=== PATIENT | female | born 1950 | race Caucasian/White ===

== ENCOUNTER → 2017-04-15 | Outpatient (CLI) | payer MEDICARE, OTHER ==
--- NOTE | 2017-04-15 10:00 | PCVCIMAG ---
APPROVED REPORT Study performed: 04/15/2017 09:05:35 EXAM: Comprehensive 2D, Doppler, and color-flow Echocardiogram Status: routine Other Information Study Quality: Good Indications Hypertension/HDD Bicuspid aortic valve, PFO 2D Dimensions LVEF(%): 57.39 (>50%) IVSd: 11.50 (7-11mm) LVDd: 33.80 mm PWd: 11.36 (7-11mm)Ascending Ao: 40.40 (22-36mm) LVDs: 23.89 (25-40mm) Left Atrium: 29.30 (27-40mm) Aortic Root: 34.81 mm LV Single Plane 4CH: 51.97 % LV Single Plane 2CH: 52.24 %Mirza's LVEF: 52.10 % Biplane EF: 54.5 % Volumes Left Atrial Volume (Systole) Single Plane 4CH: 29.43 mLSingle Plane 2CH: 46.16 mL LA ESV Index: 24.00 mL/m2 Aortic Valve AoV Peak Yogi.: 1.92 m/s AO Peak Gr.: 14.80 mmHgLVOT Max P.53 mmHg LVOT Max V: 0.80 m/s Mitral Valve E/A Ratio: 0.6 MV Decel. Time: 309.39 ms MV E Max Yogi.: 0.45 m/s MV A Yogi.: 0.74 m/s IVRT: 121.11 ms TDI E/Lateral E': 8.50E/Medial E': 18.00 Pulmonary Valve PV Peak Yogi.: 0.74 m/sPV Peak Gr.: 2.17 mmHg Pulmonary Vein P Vein S: 0.31 m/sP Vein A: 0.29 m/s P Vein D: 0.37 m/sP Vein A Dur.: 138.4 msec P Vein S/D Ratio: 0.84 Tricuspid Valve TR Peak Yogi.: 2.35 m/s TR Peak Gr.: 22.03 mmHg Left Ventricle The left ventricle is normal size. There is normal LV segmental wall motion. There is normal left ventricular wall thickness. Left ventricular systolic function is normal. The left ventricular ejection fraction is within the normal range. LVEF is >55%. Grade I - abnormal relaxation pattern. Right Ventricle The right ventricle is normal size. The right ventricular systolic function is normal. Atria The left atrium size is normal. Aneurysmal atrial septum with know left to right PFO. The right atrium size is normal. Aortic Valve The aortic valve is moderately sclerotic. The aortic valve is bicuspid. No aortic regurgitation is present. There is normal aortic valve excursion. Mitral Valve The mitral valve is normal in structure. There is trivial mitral valve regurgitation noted. No evidence of mitral valve stenosis. Tricuspid Valve The tricuspid valve is normal in structure. There is trace tricuspid regurgitation. The PAP is 29 mmHg. Pulmonic Valve The pulmonary valve is normal in structure. There is mild pulmonic valvular regurgitation. Great Vessels The ascending aortic root is mildly dilated to 4.1 cm. IVC is normal in size and collapses with >50% inspiration Pericardium There is no pericardial effusion. <Conclusion> Left ventricular systolic function is normal. There is normal LV segmental wall motion. LVEF is >55%. Grade I diastolic dysfunction. The aortic valve is moderately sclerotic. The aortic valve is bicuspid. There is normal aortic valve excursion, no stenosis or insufficiency. The mitral valve is normal in structure. Trace mitral insufficiency There is trace tricuspid regurgitation. Pulmonary artery pressure of 30 mmHg. The ascending aortic root is mildly dilated to 4.1 cm. There is no pericardial effusion.
== END | disposition home or self-care (01) ==
LOC: PCVCIMAG 09:06
PROVIDERS: ATTEND Internal Medicine
DX: I08.1 Rheumatic disorders of both mitral and tricuspid valves (principal); I10 Essential (primary) hypertension; I71.2 Thoracic aortic aneurysm, without rupture; E78.5 Hyperlipidemia, unspecified; I49.3 Ventricular premature depolarization; Q21.1 Atrial septal defect; I25.10 Atherosclerotic heart disease of native coronary artery without angina pectoris; J45.909 Unspecified asthma, uncomplicated; M85.88 Other specified disorders of bone density and structure, other site; Z79.82 Long term (current) use of aspirin; Z79.899 Other long term (current) drug therapy; Z88.1 Allergy status to other antibiotic agents; Z88.5 Allergy status to narcotic agent; Z91.013 Allergy to seafood
CPT/HCPCS: 80061; 93005; 93306; G0463

== ENCOUNTER → 2017-10-17 | Outpatient (CLI) | payer MEDICARE, OTHER | END | disposition home or self-care (01) | LOC: PCVCCLINIC 11:34 | PROVIDERS: ATTEND Internal Medicine | DX: I10 Essential (primary) hypertension (principal); Q21.3 Tetralogy of Fallot; I71.2 Thoracic aortic aneurysm, without rupture; E78.5 Hyperlipidemia, unspecified; G35 Multiple sclerosis; E11.9 Type 2 diabetes mellitus without complications; Z79.82 Long term (current) use of aspirin; Z79.899 Other long term (current) drug therapy | CPT/HCPCS: 80061; 93005; G0463 ==

== ENCOUNTER → 2018-12-01 | Outpatient (CLI) | payer MEDICARE, OTHER | END | disposition home or self-care (01) | LOC: PCVCCLINIC 14:53 | PROVIDERS: ATTEND Internal Medicine | DX: Q23.1 Congenital insufficiency of aortic valve (principal); E78.5 Hyperlipidemia, unspecified; I10 Essential (primary) hypertension; Q21.1 Atrial septal defect; I71.2 Thoracic aortic aneurysm, without rupture; I70.8 Atherosclerosis of other arteries; H35.09 Other intraretinal microvascular abnormalities; E11.9 Type 2 diabetes mellitus without complications; G35 Multiple sclerosis; J45.909 Unspecified asthma, uncomplicated; Z88.8 Allergy status to other drugs, medicaments and biological substances; Z79.82 Long term (current) use of aspirin; Z79.899 Other long term (current) drug therapy | CPT/HCPCS: 36415; 80061; 93005; G0463 ==

== ENCOUNTER → 2018-12-19 | Outpatient (CLI) | payer MEDICARE, OTHER ==
--- NOTE | 2018-12-19 17:11 | PCVCIMAG ---
APPROVED REPORT Study performed: 12/19/2018 15:42:30 EXAM: Comprehensive 2D, Doppler, and color-flow Echocardiogram Patient Location: Echo lab Room #: [id number]: routine BSA: 1.52 Rhythm: NSR Risk Factors: Cardiac Risk Factors: HTN,PFO Indications Aortic Valve Disease CVA/TIA Hypertension/HDD Bicuspid aortic valve 2D Dimensions IVSd: 7.39 (7-11mm)LVOT Diam: 20.70 (18-24mm) LVDd: 36.91 mm PWd: 6.27 (7-11mm)Ascending Ao: 38.86 (22-36mm) LVDs: 18.33 (25-40mm) Left Atrium: 31.76 (27-40mm) Aortic Root: 25.44 mm LV Single Plane 4CH: 57.81 % LV Single Plane 2CH: 59.90 % Biplane EF: 58.5 % Volumes Left Atrial Volume (Systole) Single Plane 4CH: 14.62 mLSingle Plane 2CH: 21.58 mL Biplane LA Volume: 19.00 mLLA ESV Index: 13.00 mL/m2 Aortic Valve AoV Peak Yogi.: 2.26 m/s AO Peak Gr.: 21.16 mmHgLVOT Max P.15 mmHg AO Mean Gr.: 12.26 mmHgLVOT Mean P.13 mmHg AO V2 Mean: 1.70 m/sLVOT Max V: 0.89 m/s AO V2 VTI: 41.84 cm YANNICK (VTI): 1.47 [id number] V1 VTI: 18.35 cm YANNICK Vmax: 1.32 cm2 Mitral Valve E/A Ratio: 0.6 MV Decel. Time: 225.05 ms MV E Max Yogi.: 0.48 m/s MV A Yogi.: 0.80 m/s MV PHT: 65.26 ms IVRT: 110.73 ms Pulmonary Valve PV Peak Yogi.: 0.91 m/sPV Peak Gr.: 3.33 mmHg Pulmonary Vein P Vein S: 0.68 m/sP Vein A: 0.49 m/s P Vein D: 0.47 m/sP Vein A Dur.: 86.5 msec P Vein S/D Ratio: 1.45 Tricuspid Valve TR Peak Yogi.: 1.96 m/s TR Peak Gr.: 15.41 mmHg TV Vmax: 0.50 m/sPA Pressure: 22.00 mmHg Left Ventricle The left ventricle is normal size. There is normal LV segmental wall motion. There is normal left ventricular wall thickness. Left ventricular systolic function is normal. The left ventricular ejection fraction is within the normal range. LVEF is 55-60%. Mild diastolic dysfunction is present (impaired relaxation pattern). Right Ventricle The right ventricle is normal size. The right ventricular systolic function is normal. Atria The left atrium size is normal. The right atrium size is normal. Aortic Valve Aortic valve is probably bicuspid. No aortic regurgitation is present. Mild aortic stenosis. Calculated aortic valve area is 1.3 cm2 with maximum pressure gradient of 20 mmHg and mean pressure gradient of 12 mmHg. Mitral Valve The mitral valve is normal in structure. There is no mitral valve regurgitation noted. No evidence of mitral valve stenosis. Tricuspid Valve The tricuspid valve is normal in structure. Trace tricuspid regurgitation. Pulmonic Valve The pulmonary valve is normal in structure. There is no pulmonic valvular regurgitation. Great Vessels The aortic root is normal in size. The ascending aorta is mildly dilated (3.9cm) Aortic arch is normal in caliber. IVC is normal in size and collapses <50% with inspiration. Pericardium There is no pericardial effusion. There is no pleural effusion. <Conclusion> Left ventricular systolic function is normal. There is normal LV segmental wall motion. LVEF is 55-60%. Mild diastolic dysfunction Aortic valve is probably bicuspid. No aortic insufficiency Mild aortic stenosis. Calculated aortic valve area is 1.3 cm2 with maximum pressure gradient of 20 mmHg and mean pressure gradient of 12 mmHg. The mitral valve is normal in structure. No mitral valve regurgitation. The ascending aorta is mildly dilated (3.9cm) There is no pericardial effusion.
--- NOTE | 2018-12-19 17:18 | PCVCIMAG ---
APPROVED REPORT Indications Amaurosis Fugax Stenosis Risk Factors Hypertension: Hyperlipidemia Doppler Spectral Velocity Analysis PSV / EDVPSV / EDV ECA (R) 83 / 10 cm/sECA (L) 81 / 11 cm/s dICA (R) 74 / 26 cm/sdICA (L) 57 / 19 cm/s Babatunde (R) 61 / 22 cm/smICA (L) 78 / 33 cm/s pICA (R) 65 / 22 cm/spICA (L) 48 / 21 cm/s Bulb (R) 39 / 18 cm/sBulb (L) 60 / 19 cm/s dCCA (R) 60 / 17 cm/sdCCA (L) 71 / 24 cm/s mCCA (R) 65 / 14 cm/smCCA (L) 75 / 21 cm/s Vert (R) 31 / 0 cm/sVert (L) 49 / 16 cm/s ICA/CCA 1.13ICA/CCA 1.05 Basic Measurements Blood Pressure: Pulses: Right Left RightLeft Brachial(Sitting) 138/82swPy743/86mmHgTemporal Real Time B-Mode Imaging Vert. (R)AntegradeVert. (L)Antegrade Findings The right carotid bulb has moderate calcified plaque. The right proximal internal carotid artery shows <40% stenosis. The right common carotid artery shows no significant stenosis. The right external carotid artery shows no significant stenosis. The left carotid bulb has mild plaque. The left proximal internal carotid artery shows no significant stenosis. The left common carotid artery shows no significant stenosis. The left external carotid artery shows no significant stenosis. Conclusion 1. Right internal carotid artery stenosis (<40%) 2. Left internal carotid artery plaquing without significant stenosis 3. Antegrade vertebral flow
== END | disposition home or self-care (01) ==
LOC: PCVCIMAG 14:27
PROVIDERS: ATTEND Internal Medicine
DX: I65.23 Occlusion and stenosis of bilateral carotid arteries (principal); I10 Essential (primary) hypertension; I71.2 Thoracic aortic aneurysm, without rupture; I70.8 Atherosclerosis of other arteries; H35.09 Other intraretinal microvascular abnormalities; E11.9 Type 2 diabetes mellitus without complications; E78.2 Mixed hyperlipidemia
CPT/HCPCS: 93306; 93880

== ENCOUNTER → 2019-01-22 | Outpatient (CLI) | payer MEDICARE, OTHER | END | disposition home or self-care (01) | LOC: PCVCCLINIC 11:10 | PROVIDERS: ATTEND Internal Medicine | DX: Q23.1 Congenital insufficiency of aortic valve (principal); E78.5 Hyperlipidemia, unspecified; I10 Essential (primary) hypertension; Q21.1 Atrial septal defect; I71.2 Thoracic aortic aneurysm, without rupture; I70.8 Atherosclerosis of other arteries; H35.09 Other intraretinal microvascular abnormalities; E11.9 Type 2 diabetes mellitus without complications; E35 Disorders of endocrine glands in diseases classified elsewhere; J45.909 Unspecified asthma, uncomplicated; I25.10 Atherosclerotic heart disease of native coronary artery without angina pectoris; M19.90 Unspecified osteoarthritis, unspecified site; Z90.49 Acquired absence of other specified parts of digestive tract; Z90.710 Acquired absence of both cervix and uterus; Z79.82 Long term (current) use of aspirin; Z88.5 Allergy status to narcotic agent; Z88.1 Allergy status to other antibiotic agents; Z88.2 Allergy status to sulfonamides; Z91.013 Allergy to seafood | CPT/HCPCS: G0463 ==